=== PATIENT | male | born 1990 | race Caucasian/White ===

== ENCOUNTER 2017-08-30 21:24 | Emergency (ER) | payer MEDICAID ==
[~2017-08-30] VITALS: Ht 185.4 cm; Wt 68.0 kg
[~2017-08-30 21:24] MED LIST: AMOXICILLIN500 MG PO; PENICILLIN V P500 MG PO; ULTRAM50 MG PO
[2017-08-30] MEDS ORDERED: BACTRIM DS TAB1 EACH PO (22:05)
== END 2017-08-30 22:34 | disposition home or self-care (01) ==
LOC: ED 21:24
DX: L03.115 Cellulitis of right lower limb (principal); F17.200 Nicotine dependence, unspecified, uncomplicated
CPT/HCPCS: 90471; 90715; 99283

== ENCOUNTER 2021-04-21 18:47 | Emergency (ER) | payer OTHER ==
[~2021-04-21] VITALS: Ht 185.4 cm; Wt 69.8 kg
[~2021-04-21 18:47] MED LIST changes: +BACTRIM DS TAB1 EACH PO
--- OUTSIDE RECORDS SUMMARY | 2021-04-21 18:50 | XMS ---
PreManage Notification: [facility] [employer] Handler Events No recent Security Events currently on file CRITERIA MET - [facility] CARE PROVID[facility] There are no care providers on record at this time. Riki has no Care Guidelines for this patient. Magy VISIT COUNT (12 MO.) 1 [place] TOTAL 1 NOTE: Visits indicate total known visits. ED/UCC VISIT TRACKING (12 MO.) 04/21/2021 18:48 [facility] [place] TYPE: Emergency COMPLAINT: - SORE THROAT INPATIENT VISIT TRACKING (12 MO.) No inpatient visits to display in this time frame [email or web address]
== END 2021-04-21 23:04 | disposition home or self-care (01) ==
LOC: ED 18:47
DX: J06.9 Acute upper respiratory infection, unspecified (principal); B97.4 Respiratory syncytial virus as the cause of diseases classified elsewhere; Z20.822 Contact with and (suspected) exposure to COVID-19; F17.200 Nicotine dependence, unspecified, uncomplicated
CPT/HCPCS: 99283; C9803; U0003

== ENCOUNTER 2021-06-08 07:17 | Emergency (ER) | payer OTHER ==
[~2021-06-08] VITALS: Ht 185.4 cm; Wt 68.2 kg
--- OUTSIDE RECORDS SUMMARY | 2021-06-08 07:20 | XMS ---
PreManage Notification: [facility]AN [facility] [employer] Manager Events No recent Security Events currently on file CRITERIA MET - [facility] CARE PROVIDERS There are no care providers on record at this time. Riki has no Care Guidelines for this patient. Magy VISIT COUNT (12 MO.) 2 [place] TOTAL 2 NOTE: Visits indicate total known visits. ED/UCC VISIT TRACKING (12 MO.) 06/08/2021 07:18 [place] [facility] [place] TYPE: Emergency COMPLAINT: - OVERDOSE 04/21/2021 18:[address] [facility] [place] TYPE: Emergency COMPLAINT: - SORE THROAT DIAGNOSES: - COUGH, UNSPECIFIED - Acute upper respiratory infection, unspecified - Respiratory syncytial virus as the cause of diseases classified elsewhere - Nicotine dependence, unspecified, uncomplicated INPATIENT VISIT TRACKING (12 MO.) No inpatient visits to display in this time frame [email or web address]
[2021-06-08] MEDS ORDERED: OLANZAPINE5 MG PO (07:32)
[2021-06-08] MEDS ORDERED: LIFEMS NALO2 MG/2 ML IM (09:39)
== END 2021-06-08 11:05 | disposition home or self-care (01) ==
LOC: ED 07:17
DX: T40.1X1A Poisoning by heroin, accidental (unintentional), initial encounter (principal); F17.200 Nicotine dependence, unspecified, uncomplicated; Z79.899 Other long term (current) drug therapy
CPT/HCPCS: 99284; A9270